=== PATIENT | female | born 1980 | race Caucasian/White ===

== ENCOUNTER → 2020-09-14 07:47 | Outpatient (CLI) | payer OTHER, SELFPAY ==
--- NOTE | ~2020-09-14 | XR_ITS ---
EXAMINATION: XR lumbar spine 2-3V DATE: 09/14/2020 08:46 INDICATION: Low back pain TECHNIQUE: Anteroposterior and lateral views of the lumbar spine, and cone-down lateral view of the l umbosacral junction were obtained. COMPARISON: 04/15/2017 FINDINGS: There are 2 mm of stable retrolisthesis of L4 on L5 and 3 mm of stable retrolisthesis of L5 on S1. There is no fracture. The vertebral body heights and intervertebral disc spaces are normal. T here is mild facet osteoarthritis at L5-S1. A moderate volume of colonic stool is present. Surgical c lips in the right upper quadrant are likely from prior cholecystectomy. An IUD is noted. IMPRESSION: 1. Mild lumbar spondylosis without acute findings or significant interval change. Reviewed, dictated and finalized at location A. ER OPERATOR IMPRESSION: 1. Mild lumbar spondylosis without acute findings or significant interval [place]
== END ==
PROVIDERS: PCP Family Medicine Adolescent Medicine; Visit Provider Family Medicine Adolescent Medicine
DX: M47.817 Spondylosis without myelopathy or radiculopathy, lumbosacral region (principal)
CPT/HCPCS: 72100

== ENCOUNTER → 2021-06-04 10:18 | Outpatient (CLI) | payer OTHER, SELFPAY ==
--- NOTE | ~2021-06-04 | XR_ITS ---
EXAMINATION: XR hand RT min 3V EXAM DATE: 06/04/2021 10:45 INDICATION: Fall with injury and pain of base of right hand. 1st metacarpal region bruising. TECHNIQUE: Right hand frontal, lateral and oblique projections obtained and reviewed. Comparison is m hellen to prior examination from 09/27/2016. FINDINGS: Right metacarpal bones are unremarkable. There are no acute fractures or dislocations adalid ntified. There is no subcutaneous gas. The soft tissue is unremarkable. There are no radiopaque f oreign bodies. The joint spaces are uniform. There is no significant interval change. IMPRESSION: 1. Unremarkable right hand exam. Reviewed, dictated and finalized at location A.
== END ==
PROVIDERS: PCP Family Medicine Adolescent Medicine; Visit Provider Family Medicine Adolescent Medicine
DX: S69.91XA Unspecified injury of right wrist, hand and finger(s), initial encounter (principal)
CPT/HCPCS: 73130

== ENCOUNTER → 2023-06-16 10:46 | Outpatient (CLI) | payer OTHER, SELFPAY ==
--- NOTE | ~2023-06-16 | XR_ITS ---
XR chest 2V DATE: 06/16/2023 11:39 INDICATION: Chest pain TECHNIQUE: 2 views COMPARISON: None FINDINGS: Normal heart size. No hilar or mediastinal enlargement. No pulmonary infiltrate or consolid ation, pleural effusion or pulmonary vascular congestion or pneumothorax. Surgical clips, right upper quadrant, likely due to cholecystectomy. IMPRESSION: No active cardiopulmonary disease Reviewed, dictated and finalized at location B. ER BASED INTERVENTION COORDINATOR
== END ==
PROVIDERS: PCP Nurse Practitioner Family; Visit Provider Nurse Practitioner Family
DX: R07.89 Other chest pain (principal)
CPT/HCPCS: 71046

== ENCOUNTER 2023-12-17 13:33 | Outpatient (CLI) | payer OTHER, SELFPAY ==
--- NOTE | ~2023-12-17 | MM_ITS ---
EXAMINATION: MM screening gonzales BI w tanisha HISTORY: Screening mammogram TECHNIQUE: Craniocaudal and mediolateral oblique 3-D tomosynthesis images were obtained and synthetic 2-D images were generated. CAD analysis was submitted and interpreted. COMPARISON: No prior mammogram is available for comparison at this institution. BREAST PARENCHYMAL COMPOSITION: The breasts are heterogeneously dense, which may obscure small masses . FINDINGS: There is no evidence of suspicious mass, calcification, or architectural distortion to sugg est malignancy in either breast. IMPRESSION: 1. No mammographic evidence of malignancy. 2. Recommend routine screening mammography in one year. BI-RADS Category 1: Negative Reviewed, dictated and finalized at location B.
== END 2023-12-17 13:34 ==
LOC: MICIMG 13:34
PROVIDERS: PCP Nurse Practitioner Family; Visit Provider Obstetrics & Gynecology Gynecology
DX: Z12.31 Encounter for screening mammogram for malignant neoplasm of breast (principal)
CPT/HCPCS: 77063; 77067